=== PATIENT | male | born 2000 | race Caucasian/White ===

== ENCOUNTER 2022-03-01 08:00 | Outpatient (CLI) | payer OTHER ==
[2022-03-01 13:53] LABS: INFECTIOUS MONONUCLEOSIS NEGATIVE (Negative)
== END 2022-03-01 23:59 | disposition home or self-care (01) ==
LOC: LAB.N 08:00
PROVIDERS: ATTEND Physician Assistant
DX: J06.9 Acute upper respiratory infection, unspecified (principal)
CPT/HCPCS: 86308

== ENCOUNTER 2023-01-24 16:55 | Emergency (ER) | payer OTHER ==
[2023-01-24 17:09] VITALS: O2SAT 99
--- NOTE | 2023-01-24 17:24 | ED Physician Documentation ---
History of Present Illness - Stated complaint Stated Complaint: SYNCOPE - Chief complaint Chief Complaint: Neuro - History obtained from History obtained from: Patient - History of Present Illness Timing: Today Pain level max: 0 Pain level now: 0 - Additonal information Additional information: 22-year-old male presents to the emergency department stating he is [employer], he was getting his blood drawn today when he felt lightheaded, dizzy and had a syncopal event. He states that that occurs every time he has his blood drawn. He states he has had nausea and vomiting since, that is also typical for him. No fevers. No chills. No cough. No congestion. No chest pain. No shortness of breath. Is not on any medications at home. He states usually he just lies down for a while until the feelings pass. Review of Systems Constitutional: denies: Fever, Chills Respiratory: denies: Cough GI: reports: Nausea, Vomiting. denies: Diarrhea : denies: Dysuria, Frequency, Hesitancy Skin: denies: Rash Musculoskeletal: denies: Neck pain, Back pain Neurologic: denies: Headache, Head injury, LOC PD PAST MEDICAL HISTORY - Present Medications Home Medications: Ambulatory Orders Medication Instructions Recorded Confirmed No Known Home Medications 01/24/23 01/24/23 - Allergies Allergies/Adverse Reactions: Allergies Allergy/AdvReac Type Severity Reaction Status Date / Time No Known Drug Allergies Allergy Verified 01/24/23 17:03 PD ED PE NORMAL - Vitals Vital signs reviewed: Yes - General General: Alert and oriented X 3, No acute distress - HEENT HEENT: PERRL, Moist mucous membranes - Neck Neck: Supple, no meningeal sign - Cardiac Cardiac: RRR, Strong equal pulses - Respiratory Respiratory: No respiratory distress, Clear bilaterally - Abdomen Abdomen: Soft, Non tender, Non distended - Derm Derm: Warm and dry - Extremities Extremities: No edema, No calf tenderness / cord - Neuro Neuro: Alert and oriented X 3, college advisor 2-12 intact, No motor deficit, No sensory deficit, Normal speech Eye Opening: Spontaneous Motor: Obeys Commands Verbal: Oriented GCS Score: 15 - Psych Psych: Normal mood, Normal affect Results - Vitals Vitals: Vital Signs - 24 hr 01/24/23 17:00 Temperature 36.1 C L Heart Rate 99 Respiratory 16 Rate Blood Pressure 132/92 H O2 Saturation 99 Oxygen O2 Source Room air - EKG (time done) 1721 EKG releavant findings:: EKG personally interpreted by author of this note. Relevant findings are: Rate: Rate (enter#) (66) Rhythm: NSR [place]: Normal Intervals: Normal MT QRS: Normal Ischemia: Q waves (II, III, aVF), Non specific changes PD Medical Decision Making - ED course Complexity details: considered differential, d/w patient ED course: Patient with vasovagal syncope after a blood draw today. Asymptomatic here. No indication for further blood work at this time. Patient is ambulating without difficulty, eating and drinking without difficulty. No chest pain. No shortness of breath. We will have him follow-up with his doctor as needed for further care. Patient counseled regarding signs and symptoms for which I believe and urgent re-evaluation would be necessary. Patient with good understanding of and agreement to plan and is comfortable going home at this time This document was made in part using voice recognition software. While efforts are made to proofread this document, sound alike and grammatical errors may occur. Departure - Departure Disposition: 01 Home, Self Care Clinical Impression: Vasovagal syncope Condition: Good Instructions: ED Syncope Vasovagal Follow-Up: Your,doctor in 1 week [Other] Comments: Please follow-up with your doctor for further care. Return if you worsen. Drink plenty of fluids when you get home and rest. Forms: PCP List
[2023-01-24 18:22] VITALS: BP 114/67
== END 2023-01-24 18:22 | disposition home or self-care (01) ==
LOC: EDUNIT# → ED 16:55
DX: R55 Syncope and collapse (principal)
CPT/HCPCS: 93005; 99283; 99284